=== PATIENT | female | born 1975 | race Caucasian/White ===

== ENCOUNTER 2019-03-03 07:43 | Emergency (ER) | payer OTHER ==
[~2019-03-03] VITALS: Ht 167.6 cm; Wt 83.9 kg
[~2019-03-03 07:43] MED LIST: ACEBUTCAFT PO; ALBU90OI INH; ASPI325 PO; ATOR40TA PO; Abilify2 MG; BUPR150T2 PO; Bactrim Ds Tab1 EACH PO; CEPH500 PO; CIPR500 PO; CLON.2 PO; CODGUAEL PO; DOXY100 PO; FLUT110OIA IH; GLIM2 PO; GLIP10 PO; HYDACE10B PO; IBUP600 PO; IBUP800; KETO10 PO; LOSA50 PO; METF500; METF500 PO; METF500C PO; MULVITMINE PO; NAPR500 PO; Naprosyn500 MG PO; Norco 5-325 Ta1 EACH PO; OXYACE5T; OXYACE5T PO; PRAZ1 PO; PROM25 PO; SULTRIDS PO; TAMS.4ER PO; TRAM50 PO
[2019-03-03] MEDS ORDERED: Amoxicillin500 MG PO (08:15)
[2019-03-03] MEDS ORDERED: Pseudoephedrine30 MG PO (08:15)
== END 2019-03-03 09:11 | disposition home or self-care (01) ==
LOC: ER 07:43
DX: H66.93 Otitis media, unspecified, bilateral (principal); E11.9 Type 2 diabetes mellitus without complications; F32.9 Major depressive disorder, single episode, unspecified; G43.909 Migraine, unspecified, not intractable, without status migrainosus; Z79.899 Other long term (current) drug therapy; Z87.891 Personal history of nicotine dependence
CPT/HCPCS: 99283; A9270-GY